=== PATIENT | male | born 1965 | race Caucasian/White ===

== ENCOUNTER 2016-12-14 12:39 | Emergency (ER) | payer MEDICARE ==
[~2016-12-14] VITALS: Ht 170.2 cm; Wt 71.0 kg
[~2016-12-14 12:39] MED LIST: AMLO-511 PO; FOLI0.8T22 PO; GABA-531 PO; HYDR25TA84 PO; PHOSLOC PO; SEVEC800 PO; UNK INSULIN SQ
[2016-12-14 13:27] LABS: GLUCOSE,POINT OF CARE 360 MG/DL (70-110)
[2016-12-14] MEDS ORDERED: FLUORESCEIN SODIUM 1 MG STRIP OU ONE (16:45)
[2016-12-14] MEDS ORDERED: PROPARACAINE HCL 0.5% 15 ML OPHTHALMIC SOLUTION OU ONE (16:45)
[2016-12-14] MEDS ORDERED: INSLAN SQ (17:14)
[2016-12-14] MEDS ORDERED: PROPARACAINE HCL 0.5% 15 ML OPHTHALMIC SOLUTION ONE (17:41)
[2016-12-14 18:40] VITALS: BP 147/77
== END 2016-12-14 18:46 | disposition home or self-care (01) ==
LOC: EMS 12:44
DX: H43.812 Vitreous degeneration, left eye (principal); E11.9 Type 2 diabetes mellitus without complications; Z79.4 Long term (current) use of insulin
CPT/HCPCS: 82962; 99282

== ENCOUNTER 2020-12-16 17:52 | Emergency (ER) | payer MEDICARE, MEDICAID ==
[~2020-12-16] VITALS: Ht 170.2 cm; Wt 78.0 kg
[~2020-12-16 17:52] MED LIST changes: +AMLO-257 PO; -AMLO-511 PO; +GABA-1181 PO; -GABA-531 PO; +INSLAN SQ; +SEVE800T17 PO; -SEVEC800 PO; -UNK INSULIN SQ
[2020-12-16 19:05] LABS: BASOPHILS % (AUTO) 0.4 % (0.0-2.0); EOSINOPHILS % (AUTO) 5.2 % (1.0-6.0); HEMATOCRIT 32.4 % (41-53); HEMOGLOBIN 10.8 g/dL (13.5-17.5); LYMPHOCYTES # (AUTO) 0.8 K/uL (1.0-4.8); LYMPHOCYTES % (AUTO) 13.1 % (22.0-44.0); MEAN CORPUSCULAR HEMOGLOBIN 29.9 pg (26.0-34.0); MEAN CORPUSCULAR HGB CONC 33.3 G/dL (31.0-37.0); MEAN CORPUSCULAR VOLUME 90 fL (80-100); MONOCYTES # (AUTO) 0.5 K/uL (0.1-1.0); MONOCYTES % (AUTO) 8.5 % (2.0-9.0); NEUTROPHILS # (AUTO) 4.3 K/uL (1.8-7.7); NEUTROPHILS % (AUTO) 72.8 % (40.0-70.0); PLATELET COUNT (AUTO) 165 K/uL (150-450); RED BLOOD CELL COUNT(AUTO) 3.61 MIL/uL (4.50-5.90); RED CELL DISTRIBUTION WIDTH 15.5 % (11.5-14.5)
[2020-12-16 19:20] LABS: CALCIUM, TOTAL 8.4 mg/dL (8.8-10.5); CREATININE 5.72 mg/dL (0.60-1.30); POTASSIUM 3.5 mmol/L (3.5-5.1)
[2020-12-16 19:27] LABS: ALBUMIN 3.4 g/dL (3.4-5.0); BILIRUBIN,TOTAL 0.7 mg/dL (0.1-1.0); TOTAL PROTEIN, SERUM 6.5 g/dL (6.4-8.2)
[2020-12-16 20:19] VITALS: BP 191/85
== END 2020-12-16 20:29 | disposition home or self-care (01) ==
LOC: EMS 18:00
DX: S00.03XA Contusion of scalp, initial encounter (principal); M25.562 Pain in left knee; M54.2 Cervicalgia; E11.22 Type 2 diabetes mellitus with diabetic chronic kidney disease; N18.6 End stage renal disease; Z99.2 Dependence on renal dialysis; Z59.0 Homelessness; Z79.4 Long term (current) use of insulin; W06.XXXA Fall from bed, initial encounter; Y93.89 Activity, other specified; Y92.89 Other specified places as the place of occurrence of the external cause; Y99.8 Other external cause status
CPT/HCPCS: 70450; 72125; 80053; 85025; 99285